=== PATIENT | male | born 1965 | race Hispanic/Latino ===

== ENCOUNTER 2017-10-07 13:04 | Outpatient (CLI) | payer OTHER ==
--- NOTE | 2017-10-07 13:57 | RAD ---
TWO VIEWS CHEST: Date: 10-07-17 Comparison: 09-30-16 History: Dyspnea. FINDINGS: There is no pneumothorax or pleural fluid and no focal consolidation or alveolar edema. Heart and med iastinal contours are grossly unremarkable. Increased linear interstitial density noted, stable. No a cute findings. IMPRESSION: Stable appearance to the chest. POS: [facility]
== END 2017-10-07 13:05 | disposition home or self-care (01) ==
LOC: RAD 13:04
PROVIDERS: ATTEND Internal Medicine Critical Care Medicine
DX: R06.00 Dyspnea, unspecified (principal)
CPT/HCPCS: 71046

== ENCOUNTER 2019-03-07 13:19 | Outpatient (CLI) | payer OTHER ==
--- NOTE | 2019-03-07 13:42 | RAD ---
Exam: Chest 2 views HISTORY: Dyspnea. COMPARISON: 10/07/2017 FINDINGS: Normal cardiac silhouette. Unremarkable pulmonary vessels and hilum Costophrenic angles are clear Chronic changes, without consolidation or mass. No pneumothorax or osseous abnormality. IMPRESSION: No acute cardiopulmonary process.
== END 2019-03-07 13:20 | disposition home or self-care (01) ==
LOC: RAD 13:19
PROVIDERS: ATTEND Internal Medicine Critical Care Medicine
DX: R06.00 Dyspnea, unspecified (principal)
CPT/HCPCS: 71046